=== PATIENT | male | born 1945 | race Caucasian/White ===

== ENCOUNTER → 2018-03-02 15:22 | Outpatient (CLI) | payer OTHER, SELFPAY ==
--- NOTE | 2018-03-02 15:26 | DI.RAD.S_ITS ---
PROCEDURE: XR WRIST LT MIN 3V INDICATIONS: Left wrist pain with mild deformation. TECHNIQUE: 3 views of the wrist were acquired. COMPARISON: None. FINDINGS: Bones: There is an impacted, intra-articular fracture seen involving distal radius, with ulnar angulation of the fracture fragments in relation to the radial shaft. There is no radiocarpal dislocation seen. No associated ulnar styloid fracture can be seen. Age-appropriate bony degenerative changes are seen. Soft tissues: Soft tissue swelling can be seen. IMPRESSION: Comminuted distal radius fracture with intra-articular involvement and palmar angulation of the fracture fragments in relation to the radial shaft. Dictated by: Ayden Shah M.D. on 03/02/2018 at 14:43 Approved by: Ayden Shah M.D. on 03/02/2018 at 14:44
== END ==
PROVIDERS: Visit Provider Physician Assistant
DX: S52.572A Other intraarticular fracture of lower end of left radius, initial encounter for closed fracture (principal); M25.532 Pain in left wrist
CPT/HCPCS: 73110